=== PATIENT | male | born 1995 | race Caucasian/White ===

== ENCOUNTER 2017-01-11 22:54 | Emergency (ER) | payer OTHER ==
[~2017-01-11] VITALS: Ht 172.7 cm; Wt 79.4 kg
[2017-01-11 23:00] VITALS: BP 116/74
--- NOTE | 2017-01-11 23:04 | ED.ADGEN ---
Adult General Chief Complaint Chief Complaint " I had a bunions removed. on my Lt foot.. . today .. and I got wet..." HPI HPI Patient is a 21 year old MALE who presents with above hx and complaints of a wet dressing to his new surgery site on left foot. Wound area appears to be stable. Dressing change. Patient follow-up primary care. Patient follow-up with surgery. Patient take meds as previous directed. Review of Systems Review of Systems Constitutional: Denies fever or chills [] Eyes: Denies change in visual acuity, redness, or eye pain [] HENT: Denies nasal congestion or sore throat [] Respiratory: Denies cough or shortness of breath [] Cardiovascular: No additional information not addressed in HPI [] GI: Denies abdominal pain, nausea, vomiting, bloody stools or diarrhea [] : Denies dysuria or hematuria [] Musculoskeletal: Denies back pain or joint pain []. Recent left foot bunion removal Integument: Denies rash or skin lesions [] Neurologic: Denies headache, focal weakness or sensory changes [] Endocrine: Denies polyuria or polydipsia [] Family History Family History Noncontributory Current Medications Current Medications See nursing for home medications Allergies Allergies No known drug allergies Physical Exam Physical Exam Constitutional: Well developed, well nourished, no acute distress, non-toxic appearance. [] HENT: Normocephalic, atraumatic, bilateral external ears normal, oropharynx moist, no oral exudates, nose normal. [] Eyes: PERRLA, EOMI, conjunctiva normal, no discharge. [] Neck: Normal range of motion, no tenderness, supple, no stridor. [] Cardiovascular:Heart rate regular rhythm, no murmur [] Lungs & Thorax: Bilateral breath sounds clear to auscultation [] Abdomen: Bowel sounds normal, soft, no tenderness, no masses, no pulsatile masses. [] Skin: Warm, dry, no erythema, no rash. [] Back: No tenderness, no CVA tenderness. [] Extremities: Left foot tenderness, no cyanosis, no clubbing, ROM intact, left foot edema. [] Surgery site appears stable. Distal neurovascular intact. Neurologic: Alert and oriented X 3, normal motor function, normal sensory function, no focal deficits noted. [] Psychologic: Affect normal, judgement normal, mood normal. [] EKG EKG [] Radiology/Procedures Radiology/Procedures [] Course & Med Decision Making Course & Med Decision Making Pertinent Labs and Imaging studies reviewed. (See chart for details) Keep dressing site clean and dry. Take meds as previous directed. Follow-up primary care. Follow-up surgery. Return if any concerns. [] Final Impression Final Impression 1. Bunion Surgery- Dressing Change Lt foot[] Problems: Dragon Disclaimer Dragon Disclaimer This electronic medical record was generated, in whole or in part, using a voice recognition dictation system. RILEY PEREZ MD Jan 11, 2017 23:04
== END 2017-01-11 23:43 | disposition home or self-care (01) ==
LOC: ER 22:54
DX: Z48.01 Encounter for change or removal of surgical wound dressing (principal); M21.612 Bunion of left foot; Z98.890 Other specified postprocedural states
CPT/HCPCS: 99283; 99284

== ENCOUNTER 2017-12-14 19:23 | Emergency (ER) | payer OTHER ==
--- NOTE | 2017-12-14 19:48 | PHYS DOC ---
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 Patient admits she 's had sick contact home with similar symptoms as well as work but he went into work today feeling he had the "" flu. He's had low-grade fevers, mild runny nose without cough no shortness of breath but comes in with diarrhea several episodes nonbloody and nonmucoid as well as generalized aches and pains. He is not taking any medications for his symptoms because he has been at work all day. He denies any travel outside the country, denies any antibiotic use. He isn 't asthmatic who normally uses a Proventil inhaler when he needs during exercise otherwise he is healthy on with a history of reflux. He denies any allergies to medications, denies any IV drug use or chest pain. Denies any abdominal pain vomiting. Review of Systems Review of Systems Constitutional: Positive for fevers and chills Eyes: Denies change in visual acuity, redness, or eye pain [] HENT: Positive for nasal congestion without sore throat Respiratory: Positive for cough without shortness of breath Cardiovascular: No additional information not addressed in HPI [] GI: Denies abdominal pain, positive for nausea and diarrhea without vomiting : Denies dysuria or hematuria [] Musculoskeletal: Denies back pain or joint pain positive for general myalgias[] Integument: Denies rash or skin lesions [] Neurologic: Denies headache, focal weakness or sensory changes [] Endocrine: Denies polyuria or polydipsia [] All other systems were reviewed and found to be within normal limits, except as documented in this note. Current Medications Current Medications Current Medications Medications (Trade) Dose Ordered Sig/Evonne Start Time Stop Time Status Last Admin Dose Admin Acetaminophen (Tylenol) 1,000 mg 1X ONCE 12/14/17 20:00 12/14/17 20:01 Ketorolac Tromethamine (Toradol) 30 mg 1X ONCE 12/14/17 20:00 12/14/17 20:01 Sodium Chloride 1,000 ml @ 1,000 mls/hr 1X ONCE 12/14/17 20:00 12/14/17 20:59 Allergies Allergies Allergies Coded Allergies Type Severity Reaction Last Updated Verified No Known Drug Allergies 12/14/17 No Physical Exam Physical Exam Of the vital signs recorded chart at this time patient noted to be febrile and tachycardic likely secondary to his dehydration and low-grade fever. Constitutional: Well developed, well nourished, no acute distress, non-toxic appearance. [] HENT: Normocephalic, atraumatic, bilateral external ears normal, oropharynx mildly dry with no erythema no exudates no tonsillar hypertrophy, clear rhinorrhea from the nose TMs look normal bilaterally. [] Eyes: PERRLA, EOMI, conjunctiva normal, no discharge. [] Neck: Normal range of motion, no tenderness, supple, no stridor. No anterior lymphadenopathy [] Cardiovascular:Heart rate regular rhythm, no murmur [] Lungs & Thorax: Bilateral breath sounds clear to auscultation no wheezes rhonchi rales or crackles[] Abdomen: Bowel sounds normal, soft, no tenderness, no masses, no pulsatile masses. No guarding rebound organomegaly no Love's or McBurney's point tenderness[] Skin: Warm, dry, no erythema, no rash. [] Extremities: No tenderness, no cyanosis, no clubbing, ROM intact, no edema. [] Neurologic: Alert and oriented X 3, normal motor function, normal sensory function, no focal deficits noted. [] Psychologic: Affect normal, judgement normal, mood normal. [] Current Patient Data Vital Signs Vital Signs Date Time Temp Pulse Resp B/P (MAP) Pulse Ox O2 Delivery O2 Flow Rate FiO2 12/14/17 19:33 100.0 129 18 97 Room Air EKG EKG [] Radiology/Procedures Radiology/Procedures [] Course & Med Decision Making Course & Med Decision Making Pertinent Labs and Imaging studies reviewed. (See chart for details) []he presents with flulike symptoms but is noted to be mildly tachycardic and febrile. We'll be provided some fluids as well as Tylenol Motrin for his low- grade fever this evening tachycardias related to his decreased oral intake today. Patient's abdomen is soft with no specific focal tenderness in the right lower quadrant. Patient has normal active bowel sounds. Patient's symptoms are likely related a flu swab will be completed. Patient's flu swab was returned at approximately 8:50 PM it is negative for A& P. Patient's tachycardia fever defervesced with Tylenol Motrin and fluids. Patient is resting quietly. He likely has a upper respiratory tract infection likely viral nature which will not require antibiotic's. I will ask to follow- up with his primary care doctor in the next 24-40 hours if symptoms continue I provided him supportive care. Impression: Upper respiratory tract infection discharge: I've spoken with the patient and/or caregivers. I've explained the patient's condition, diagnosis and treatment plan based on information available to me at this time. I've answered the patient's and/or caregivers questions and addressed any concerns. The patient and/or caregivers have a good understanding the patient's diagnosis, condition and treatment plan as can be expected at this point. Vital signs have been stabilized. The patient's condition is stable for discharge from the emergency department. The patient will pursue further outpatient evaluation with her primary care provider or other designated consulting physician as outlined in the discharge instructions. Patient and/or caregivers are agreeable to this plan of care and follow-up instructions have been explained in detail. The patient and/or caregivers have received these instructions in written format and expressed understanding of these discharge instructions. The patient and her caregivers are aware that if any significant change in condition or worsening of symptoms should prompt him to immediately return to this of the closest emergency department. If an emergent department is not readily available I would encourage him to call 911. Olive Disclaimer Dragon Disclaimer This electronic medical record was generated, in whole or in part, using a voice recognition dictation system. Departure Departure: Impression: Primary Impression: Upper respiratory infection Disposition: HOME, SELF-CARE Condition: STABLE Referrals: CAMILLE URBINA (PCP) Patient Instructions: Upper Respiratory Infection, Adult Additional Instructions: discharge: I've spoken with the patient and/or caregivers. I've explained the patient's condition, diagnosis and treatment plan based on information available to me at this time. I've answered the patient's and/or caregivers questions and addressed any concerns. The patient and/or caregivers have a good understanding the patient's diagnosis, condition and treatment plan as can be expected at this point. Vital signs have been stabilized. The patient's condition is stable for discharge from the emergency department. The patient will pursue further outpatient evaluation with her primary care provider or other designated consulting physician as outlined in the discharge instructions. Patient and/or caregivers are agreeable to this plan of care and follow-up instructions have been explained in detail. The patient and/or caregivers have received these instructions in written format and expressed understanding of these discharge instructions. The patient and her caregivers are aware that if any significant change in condition or worsening of symptoms should prompt him to immediately return to this of the closest emergency department. If an emergent department is not readily available I would encourage him to call 911. Scripts Ondansetron (ZOFRAN ODT) 4 Mg Tab.rapdis 1 TAB SL Q8HRS, #15 TAB Prov: SHARON PAINTING MD 12/14/17 Acetaminophen (TYLENOL) 325 Mg Tablet 1-2 TAB PO QID, #30 TAB 2 Refills Prov: SHARON PAINTING MD 12/14/17 Naproxen Sodium (NAPROXEN SODIUM) 275 Mg Tablet 275 MG PO BID for 7 Days, #14 TAB Prov: SHARON PAINTING MD 12/14/17 Guaifenesin/Dextromethorphan (MUCINEX DM ER 1,200-60 MG TAB) 1 Each Tbmp.12hr 1 TAB PO BID, #20 TAB 1 Refill Prov: SHARON PAINTING MD 12/14/17 SHARON PAINTING MD Dec 14, 2017 19:48
[2017-12-14] MEDS ORDERED: KETOROLAC 30 MG/ML VIAL. IV ONE (20:00)
[2017-12-14] MEDS ORDERED: ACETAMINOPHEN 500 MG TABLET PO ONE (20:00)
[2017-12-14] MEDS ORDERED: IV NORMAL SALINE 1,000ML 1,000 ML IV ONE (20:00)
[2017-12-14 20:39] LABS: INFLUENZA A PATIENT NEGATIVE (NEGATIVE); INFLUENZA B PATIENT NEGATIVE (NEGATIVE)
[2017-12-14] MEDS ORDERED: ACET325T9 PO (20:55)
[2017-12-14] MEDS ORDERED: NAPR275T59 PO (20:55)
[2017-12-14] MEDS ORDERED: GUAI1TBM10 PO (20:55)
[2017-12-14] MEDS ORDERED: ONDA4TAB10 SL (20:55)
[2017-12-14 21:08] VITALS: BP 131/54
== END 2017-12-14 21:11 | disposition home or self-care (01) ==
LOC: ER 19:23
DX: J06.9 Acute upper respiratory infection, unspecified (principal); J45.909 Unspecified asthma, uncomplicated; K21.9 Gastro-esophageal reflux disease without esophagitis
CPT/HCPCS: 87804; 96361; 96374; 99284; J1885; J7030